=== PATIENT | female | born 1935 | race Caucasian/White ===

== ENCOUNTER 2018-03-23 07:29 | Inpatient (IN) | payer MEDICARE ==
[2018-03-23] MEDS: SOD CHLORIDE 0.9% 1,000 ML IV ×3 (08:30→13:43)
[2018-03-23 08:49] LABS: ADD MAN DIFF? NO
[2018-03-23] MEDS: ONDANSETRON 4 MG INJ IV (08:50)
[2018-03-23 08:52] LABS: BASOPHILS % 0.2 % (0.0-2.0); EOSINOPHILS % 0.2 % (0.0-7.0); HEMATOCRIT 46.6 % (37.0-47.0); LYMPHOCYTES % 10.3 % (15.0-51.0); MEAN CORPUSCULAR HEMOGLOBIN 31.4 pg (29.0-33.0); MEAN CORPUSCULAR HGB CONC 34.3 g/dl (32.0-37.0); MEAN CORPUSCULAR VOLUME 91.4 fl (82.0-101.0); MEAN PLATELET VOLUME 11.1 fl (7.4-10.4); MONOCYTE # 0.8 10^3/ul (0.3-0.9); MONOCYTES % 8.8 % (0.0-11.0); NEUTROPHIL # 7.6 10^3/ul (1.6-7.5); NEUTROPHILS % 80.2 % (39.0-77.0); PLATELET COUNT 346 10^3/UL (140-415); RED CELL DISTRIBUTION WIDTH 13.8 % (11.5-14.5)
[2018-03-23 08:52] LABS: WHITE BLOOD COUNT 9.5 10^3/ul (4.8-10.8)
[2018-03-23 08:55] LABS: ADD UMIC YES; UR ASCORBIC ACID 40 mg/dL (NEGATIVE); UR BACTERIA FEW /HPF (NONE SEEN); UR BILIRUBIN (Dip) NEGATIVE (NEGATIVE); UR BLOOD (Dip) NEGATIVE (NEGATIVE); UR CLARITY SLIGHTLY CLOUDY (CLEAR); UR COLOR YELLOW (YELLOW); UR GLUCOSE (Dip) 1+ mg/dL (NEGATIVE); UR KETONES (Dip) NEGATIVE (NEGATIVE); UR LEUKOCYTE ESTERASE (Dip) TRACE Leu/ul (NEGATIVE); UR MUCUS MODERATE /HPF (NONE SEEN); UR NITRITE (Dip) NEGATIVE (NEGATIVE); UR RBC 2 /HPF (0-5); UR SPECIFIC GRAVITY (Dip) 1.023 (1.003-1.030); UR SQUAMOUS EPITHELIAL CELL FEW /HPF (FEW); UR TOTAL PROTEIN (Dip) 2+ mg/dl (NEGATIVE); UR UROBILINOGEN (Dip) NEGATIVE (NEGATIVE); UR WBC 3 /HPF (0-5)
[2018-03-23 08:57] LABS: POSITIVE DIFF @See below
[2018-03-23 09:12] LABS: ALBUMIN 5.1 g/dl (3.3-4.9); ALBUMIN/GLOBULIN RATIO 1.24; ALKALINE PHOSPHATASE 41 IU/L (42-121); ANION GAP 15 (8-16); ASPARTATE AMINO TRANSFERASE 79 IU/L (15-46); BILIRUBIN,INDIRECT 0.5 mg/dl (0-1.1); BILIRUBIN,TOTAL 0.5 mg/dl (0.2-1.3); BLOOD UREA NITROGEN 26 mg/dl (7-20); CALCIUM 9.8 mg/dl (8.4-10.2); CARBON DIOXIDE 28 mmol/L (21-31); CHLORIDE 98 mmol/L (97-110); CREATININE 0.71 mg/dl (0.44-1.00); GLUCOSE 100 mg/dl (70-220); LIPASE 157 U/L (23-300); POTASSIUM 5.7 mmol/L (3.5-5.1); SODIUM 135 mmol/L (135-144); TOTAL PROTEIN 9.2 g/dl (6.1-8.1)
[2018-03-23 09:13] LABS: ALANINE AMINOTRANSFERASE < 6 IU/L (13-69)
[2018-03-23 09:24] LABS: TROPONIN-I 0.023 ng/ml (0.000-0.120)
[2018-03-23] MEDS ORDERED: CEFTRIAXONE 1 GM INJ IM (09:30)
[2018-03-23] MEDS: ALBUTEROL 0.083% (NEB) 2.5 MG/3 ML AMP HHN (09:56)
[2018-03-23] MEDS ORDERED: ALBUTEROL 0.083% (NEB) 2.5 MG/3 ML AMP (10:01)
[2018-03-23] MEDS ORDERED: DOCUSATE SODIUM 100 MG CAP PO (11:00)
[2018-03-23] MEDS ORDERED: NACL 0.9% 3 ML SYG IV (11:00)
[2018-03-23] MEDS ORDERED: ONDANSETRON 4 MG INJ IV (11:00)
[2018-03-23] MEDS: CEFTRIAXONE 1 GM/50 ML (PMX) 50 ML IVPB (11:53)
[2018-03-23] MEDS: NA PHOSPHATE/BIPHOS 133 ML ENEMA PR (12:30)
[2018-03-23] MEDS: CIPROFLOXACIN 400MG/D5W 200 ML IVPB ×2 (13:33→22:32)
[2018-03-23 14:02] LABS: ANION GAP 17 (8-16); BLOOD UREA NITROGEN 23 mg/dl (7-20); CALCIUM 8.7 mg/dl (8.4-10.2); CARBON DIOXIDE 21 mmol/L (21-31); CHLORIDE 106 mmol/L (97-110); GLUCOSE 114 mg/dl (70-220); POTASSIUM 3.5 mmol/L (3.5-5.1); SODIUM 140 mmol/L (135-144)
[2018-03-23] MEDS: METOCLOPRAMIDE 10 MG INJ IV (18:51)
[2018-03-23] MEDS: FAMOTIDINE 20 MG TAB PO (21:00)
[2018-03-23] MEDS: FLUTICASONE/VILANTEROL 100-25 INH (22:40)
[2018-03-23] MEDS: [UNRECOGNIZED DRUG - OTHER] BOTH EYES (23:30)
[2018-03-23] MEDS: LORAZEPAM 2 MG INJ IV (23:35)
[2018-03-24] MEDS: SOD CHLORIDE 0.9% 1,000 ML IV ×4 (01:24→17:30)
[2018-03-24] MEDS: METOCLOPRAMIDE 10 MG INJ IV ×3 (01:24→12:00)
[2018-03-24 06:15] LABS: ADD MAN DIFF? NO
[2018-03-24 06:35] LABS: WHITE BLOOD COUNT 7.9 10^3/ul (4.8-10.8)
[2018-03-24 06:35] LABS: BASOPHILS % 0.5 % (0.0-2.0); EOSINOPHILS % 0.5 % (0.0-7.0); HEMOGLOBIN 12.7 g/dl (12.0-16.0); LYMPHOCYTES # 1.5 10^3/ul (0.8-2.9); LYMPHOCYTES % 18.4 % (15.0-51.0); MEAN CORPUSCULAR HEMOGLOBIN 31.9 pg (29.0-33.0); MEAN CORPUSCULAR HGB CONC 34.3 g/dl (32.0-37.0); MEAN PLATELET VOLUME 9.8 fl (7.4-10.4); NEUTROPHIL # 5.3 10^3/ul (1.6-7.5); NEUTROPHILS % 67.2 % (39.0-77.0); RED BLOOD COUNT 3.98 10^6/ul (4.20-5.40); RED CELL DISTRIBUTION WIDTH 14.3 % (11.5-14.5)
[2018-03-24 06:36] LABS: PLATELET COUNT 224 10^3/UL (140-415); POSITIVE DIFF @See below
[2018-03-24 06:43] LABS: ANION GAP 10 (8-16); BLOOD UREA NITROGEN 13 mg/dl (7-20); CALCIUM 8.3 mg/dl (8.4-10.2); CARBON DIOXIDE 24 mmol/L (21-31); CHLORIDE 109 mmol/L (97-110); CHOL/HDL RATIO 3.3 RATIO; CHOLESTEROL 205 mg/dl (100-200); CREATININE 0.59 mg/dl (0.44-1.00); GLUCOSE 93 mg/dl (70-220); HDL CHOLESTEROL 62 mg/dl (33-92); LDL CHOLESTEROL,CALCULATED 134 mg/dl; PHOSPHORUS 2.9 mg/dl (2.5-4.9); SODIUM 139 mmol/L (135-144); TRIGLYCERIDES 46 mg/dl (0-149)
[2018-03-24 06:55] LABS: HEMOGLOBIN A1C 5.5 % (0-5.9)
[2018-03-24] MEDS: CIPROFLOXACIN 400MG/D5W 200 ML IVPB ×2 (08:05→20:35)
[2018-03-24] MEDS: AMLODIPINE 2.5 MG TAB PO ×2 (08:06→16:00)
[2018-03-24] MEDS: FLUTICASONE/VILANTEROL 100-25 INH (08:07)
[2018-03-24] MEDS: LORAZEPAM 2 MG INJ IV (10:18)
[2018-03-24 10:44] LABS: PREALBUMIN 19.6 mg/dl (17.6-36.0)
[2018-03-24] MEDS ORDERED: METOCLOPRAMIDE 5 MG TAB PO (14:00)
[2018-03-24] MEDS: NA PHOSPHATE/BIPHOS 133 ML ENEMA PR (16:43)
[2018-03-24] MEDS: FAMOTIDINE 20 MG TAB PO (20:35)
[2018-03-24] MEDS: [UNRECOGNIZED DRUG - OTHER] BOTH EYES ×2 (20:39→21:19)
[2018-03-24] MEDS ORDERED: PROPYLENE GLYCOL/PEG 15 ML OPH BOTH EYES (21:00)
[2018-03-25] MEDS: SOD CHLORIDE 0.9% 1,000 ML IV ×2 (02:44→14:25)
[2018-03-25] MEDS: POLYETHYLENE GLYCOL 17 GM PACKET PO ×2 (09:00→11:10)
[2018-03-25 09:04] LABS: ADD MAN DIFF? NO
[2018-03-25 09:08] LABS: BASOPHIL # 0.1 10^3/ul (0.0-0.1); BASOPHILS % 0.8 % (0.0-2.0); EOSINOPHILS # 0.1 10^3/ul (0.0-0.5); EOSINOPHILS % 0.6 % (0.0-7.0); HEMATOCRIT 41.3 % (37.0-47.0); HEMOGLOBIN 13.8 g/dl (12.0-16.0); LYMPHOCYTES # 1.2 10^3/ul (0.8-2.9); LYMPHOCYTES % 15.2 % (15.0-51.0); MEAN CORPUSCULAR HEMOGLOBIN 30.3 pg (29.0-33.0); MEAN CORPUSCULAR HGB CONC 33.4 g/dl (32.0-37.0); MEAN CORPUSCULAR VOLUME 90.8 fl (82.0-101.0); MEAN PLATELET VOLUME 9.6 fl (7.4-10.4); MONOCYTES % 12.8 % (0.0-11.0); NEUTROPHIL # 5.5 10^3/ul (1.6-7.5); NEUTROPHILS % 70.2 % (39.0-77.0); PLATELET COUNT 270 10^3/UL (140-415); RED BLOOD COUNT 4.55 10^6/ul (4.20-5.40); RED CELL DISTRIBUTION WIDTH 14.1 % (11.5-14.5)
[2018-03-25 09:08] LABS: WHITE BLOOD COUNT 7.9 10^3/ul (4.8-10.8)
[2018-03-25] MEDS: CIPROFLOXACIN 400MG/D5W 200 ML IVPB (09:24)
[2018-03-25] MEDS: FLUTICASONE/VILANTEROL 100-25 INH (09:24)
[2018-03-25] MEDS: AMLODIPINE 5 MG TAB PO ×2 (09:26→11:12)
[2018-03-25 09:32] LABS: ANION GAP 8 (8-16); BLOOD UREA NITROGEN 8 mg/dl (7-20); CALCIUM 8.8 mg/dl (8.4-10.2); CARBON DIOXIDE 27 mmol/L (21-31); CHLORIDE 106 mmol/L (97-110); CREATININE 0.58 mg/dl (0.44-1.00); GLUCOSE 100 mg/dl (70-220); POTASSIUM 3.2 mmol/L (3.5-5.1); SODIUM 138 mmol/L (135-144)
[2018-03-25] MEDS: POTASSIUM CHLORIDE (SR) 20 MEQ TAB PO (11:11)
[2018-03-25] MEDS: DOCUSATE SODIUM 100 MG CAP PO ×2 (11:11→21:03)
[2018-03-25] MEDS: FLUCONAZOLE 150 MG TAB PO (12:13)
[2018-03-25] MEDS: NITROFURANTOIN (SR) 100 MG CAP PO ×2 (12:13→21:03)
[2018-03-25] MEDS: SENNA TAB PO ×2 (12:13→21:03)
[2018-03-25] MEDS: CLOTRIMAZOLE 1% 45 GM VAG CR VAG (14:24)
[2018-03-25] MEDS: CIPROFLOXACIN 500 MG TAB PO (17:40)
[2018-03-25] MEDS: FAMOTIDINE 20 MG TAB PO (21:03)
[2018-03-26] MEDS: SOD CHLORIDE 0.9% 1,000 ML IV ×3 (01:19→12:44)
[2018-03-26] MEDS: ZOLPIDEM 5 MG TAB PO ×2 (01:33→22:15)
[2018-03-26] MEDS: CIPROFLOXACIN 500 MG TAB PO ×2 (06:52→17:52)
[2018-03-26] MEDS: NITROFURANTOIN (SR) 100 MG CAP PO ×2 (09:20→20:51)
[2018-03-26] MEDS: AMLODIPINE 10 MG TAB PO (09:20)
[2018-03-26] MEDS: SENNA TAB PO ×2 (09:20→20:51)
[2018-03-26] MEDS: FLUTICASONE/VILANTEROL 100-25 INH (09:21)
[2018-03-26] MEDS: DOCUSATE SODIUM 100 MG CAP PO ×2 (09:21→20:51)
[2018-03-26] MEDS: MAGNESIUM CITRATE 300 ML BTL PO (14:22)
[2018-03-26] MEDS: POLYETHYLENE GLYCOL 17 GM PACKET PO (14:22)
[2018-03-26] MEDS: ACETAMINOPHEN 325 MG TAB PO (17:54)
[2018-03-26] MEDS: VITAMIN A & D 5 GM OINT PACKET TOP (17:55)
[2018-03-26] MEDS: FAMOTIDINE 20 MG TAB PO (20:51)
[2018-03-26] MEDS: [UNRECOGNIZED DRUG - OTHER] BOTH EYES (20:52)
[2018-03-27 05:47] LABS: ANION GAP 12 (8-16); BLOOD UREA NITROGEN 15 mg/dl (7-20); CALCIUM 9.5 mg/dl (8.4-10.2); CARBON DIOXIDE 28 mmol/L (21-31); CHLORIDE 100 mmol/L (97-110); CREATININE 0.64 mg/dl (0.44-1.00); GLUCOSE 114 mg/dl (70-220); POTASSIUM 3.5 mmol/L (3.5-5.1); SODIUM 136 mmol/L (135-144)
[2018-03-27] MEDS: CIPROFLOXACIN 500 MG TAB PO ×2 (06:30→17:48)
[2018-03-27] MEDS: DOCUSATE SODIUM 100 MG CAP PO ×2 (09:00→20:57)
[2018-03-27] MEDS: SENNA TAB PO ×2 (09:00→20:59)
[2018-03-27] MEDS: POLYETHYLENE GLYCOL 17 GM PACKET PO (09:00)
[2018-03-27] MEDS: FLUTICASONE/VILANTEROL 100-25 INH (09:10)
[2018-03-27] MEDS: AMLODIPINE 10 MG TAB PO (09:11)
[2018-03-27] MEDS: NITROFURANTOIN (SR) 100 MG CAP PO ×2 (09:11→20:59)
[2018-03-27] MEDS: LOSARTAN 25 MG TAB PO (12:32)
[2018-03-27] MEDS: [UNRECOGNIZED DRUG - OTHER] BOTH EYES (20:58)
[2018-03-27] MEDS: VITAMIN A & D 5 GM OINT PACKET TOP (20:58)
[2018-03-27] MEDS: FAMOTIDINE 20 MG TAB PO (20:58)
[2018-03-27] MEDS: ZOLPIDEM 5 MG TAB PO (21:02)
[2018-03-28] MEDS: CIPROFLOXACIN 500 MG TAB PO (05:44)
[2018-03-28 06:02] LABS: ANION GAP 10 (8-16); BLOOD UREA NITROGEN 19 mg/dl (7-20); CALCIUM 9.3 mg/dl (8.4-10.2); CARBON DIOXIDE 30 mmol/L (21-31); CHLORIDE 100 mmol/L (97-110); CREATININE 0.83 mg/dl (0.44-1.00); GLUCOSE 100 mg/dl (70-220); POTASSIUM 3.6 mmol/L (3.5-5.1); SODIUM 136 mmol/L (135-144)
[2018-03-28] MEDS: NITROFURANTOIN (SR) 100 MG CAP PO (08:28)
[2018-03-28] MEDS: AMLODIPINE 10 MG TAB PO (08:28)
[2018-03-28] MEDS: FLUTICASONE/VILANTEROL 100-25 INH (08:29)
[2018-03-28] MEDS: POLYETHYLENE GLYCOL 17 GM PACKET PO (08:29)
[2018-03-28] MEDS: DOCUSATE SODIUM 100 MG CAP PO (08:29)
[2018-03-28] MEDS: SENNA TAB PO (08:29)
[2018-03-28] MEDS: LOSARTAN 25 MG TAB PO (09:44)
== END 2018-03-28 16:35 | disposition home or self-care (01) | DRG 392 ==
LOC: E/R 07:29 → 2NE 09:58
DX: K59.00 Constipation, unspecified (principal); N39.0 Urinary tract infection, site not specified; Z68.1 Body mass index [BMI] 19.9 or less, adult; R64 Cachexia; E46 Unspecified protein-calorie malnutrition; B37.3 Candidiasis of vulva and vagina; B96.4 Proteus (mirabilis) (morganii) as the cause of diseases classified elsewhere; B96.20 Unspecified Escherichia coli [E. coli] as the cause of diseases classified elsewhere; E86.0 Dehydration; E87.5 Hyperkalemia; G20 Parkinson's disease; G25.0 Essential tremor; G62.9 Polyneuropathy, unspecified; I10 Essential (primary) hypertension; J45.909 Unspecified asthma, uncomplicated; K76.0 Fatty (change of) liver, not elsewhere classified; N28.1 Cyst of kidney, acquired; R10.9 Unspecified abdominal pain; R11.0 Nausea; R27.0 Ataxia, unspecified
CPT/HCPCS: 36415; 71045; 74176; 74182; 80048; 80053; 80061; 81001; 83036; 83690; 83735; 84100; 84134; 84443; 84484; 85025; 87040; 87086; 93005; 94664; 97110; 97116; 97161; 99285-25

== ENCOUNTER 2018-05-04 12:05 | Emergency (ER) | payer MEDICARE ==
[2018-05-04 12:56] LABS: ADD MAN DIFF? NO
[2018-05-04 12:57] LABS: BASOPHILS % 0.3 % (0.0-2.0); EOSINOPHILS % 0.1 % (0.0-7.0); HEMOGLOBIN 14.4 g/dl (12.0-16.0); LYMPHOCYTES # 1.3 10^3/ul (0.8-2.9); LYMPHOCYTES % 13.7 % (15.0-51.0); MEAN CORPUSCULAR HEMOGLOBIN 31.5 pg (29.0-33.0); MEAN CORPUSCULAR HGB CONC 34.3 g/dl (32.0-37.0); MEAN CORPUSCULAR VOLUME 91.9 fl (82.0-101.0); MEAN PLATELET VOLUME 10.1 fl (7.4-10.4); MONOCYTE # 0.8 10^3/ul (0.3-0.9); MONOCYTES % 8.1 % (0.0-11.0); NEUTROPHIL # 7.4 10^3/ul (1.6-7.5); NEUTROPHILS % 77.4 % (39.0-77.0); PLATELET COUNT 263 10^3/UL (140-415); RED BLOOD COUNT 4.57 10^6/ul (4.20-5.40); RED CELL DISTRIBUTION WIDTH 13.8 % (11.5-14.5)
[2018-05-04 12:57] LABS: WHITE BLOOD COUNT 9.6 10^3/ul (4.8-10.8)
[2018-05-04] MEDS: ONDANSETRON 4 MG INJ IV (13:01)
[2018-05-04] MEDS: SOD CHLORIDE 0.9% 1,000 ML IV (13:02)
[2018-05-04 13:15] LABS: ADD UMIC NO; UR ASCORBIC ACID 20 mg/dL (NEGATIVE); UR BILIRUBIN (Dip) NEGATIVE (NEGATIVE); UR BLOOD (Dip) NEGATIVE (NEGATIVE); UR CLARITY CLEAR (CLEAR); UR COLOR YELLOW (YELLOW); UR GLUCOSE (Dip) NEGATIVE (NEGATIVE); UR KETONES (Dip) TRACE mg/dL (NEGATIVE); UR LEUKOCYTE ESTERASE (Dip) NEGATIVE Leu/ul (NEGATIVE); UR NITRITE (Dip) NEGATIVE (NEGATIVE); UR SPECIFIC GRAVITY (Dip) 1.011 (1.003-1.030); UR TOTAL PROTEIN (Dip) NEGATIVE (NEGATIVE); UR UROBILINOGEN (Dip) NEGATIVE (NEGATIVE)
[2018-05-04 13:18] LABS: ALANINE AMINOTRANSFERASE 13 IU/L (13-69); ALBUMIN 4.5 g/dl (3.3-4.9); ALBUMIN/GLOBULIN RATIO 1.36; ALKALINE PHOSPHATASE 47 IU/L (42-121); ANION GAP 10 (8-16); ASPARTATE AMINO TRANSFERASE 37 IU/L (15-46); BILIRUBIN,INDIRECT 0.5 mg/dl (0-1.1); BILIRUBIN,TOTAL 0.5 mg/dl (0.2-1.3); BLOOD UREA NITROGEN 29 mg/dl (7-20); CARBON DIOXIDE 29 mmol/L (21-31); CHLORIDE 104 mmol/L (97-110); CREATININE 0.75 mg/dl (0.44-1.00); GLUCOSE 111 mg/dl (70-220); LIPASE 131 U/L (23-300); POTASSIUM 5.1 mmol/L (3.5-5.1); SODIUM 138 mmol/L (135-144); TOTAL PROTEIN 7.8 g/dl (6.1-8.1)
[2018-05-04 13:29] LABS: TROPONIN-I < 0.012 ng/ml (0.000-0.120)
== END 2018-05-04 14:30 | disposition home or self-care (01) ==
LOC: E/R 12:05
DX: R11.0 Nausea (principal); R40.2142 Coma scale, eyes open, spontaneous, at arrival to emergency department; R40.2362 Coma scale, best motor response, obeys commands, at arrival to emergency department; R40.2252 Coma scale, best verbal response, oriented, at arrival to emergency department; E86.0 Dehydration; I10 Essential (primary) hypertension; J45.909 Unspecified asthma, uncomplicated; Z87.891 Personal history of nicotine dependence; Z85.9 Personal history of malignant neoplasm, unspecified
CPT/HCPCS: 36415; 71045; 80053; 81003; 83690; 84484; 85025; 93005; 96374; 99285-25

== ENCOUNTER 2018-06-16 09:19 | Emergency (ER) | payer MEDICARE ==
[2018-06-16 10:02] LABS: ADD MAN DIFF? NO
[2018-06-16 10:04] LABS: WHITE BLOOD COUNT 11.1 10^3/ul (4.8-10.8)
[2018-06-16 10:04] LABS: ABNORMAL IP MESSAGE 1; BASOPHILS % 0.2 % (0.0-2.0); EOSINOPHILS % 0.2 % (0.0-7.0); HEMATOCRIT 42.9 % (37.0-47.0); HEMOGLOBIN 14.3 g/dl (12.0-16.0); LYMPHOCYTES # 0.6 10^3/ul (0.8-2.9); LYMPHOCYTES % 5.2 % (15.0-51.0); MEAN CORPUSCULAR HEMOGLOBIN 31.2 pg (29.0-33.0); MEAN CORPUSCULAR HGB CONC 33.3 g/dl (32.0-37.0); MEAN CORPUSCULAR VOLUME 93.7 fl (82.0-101.0); MEAN PLATELET VOLUME 9.3 fl (7.4-10.4); MONOCYTE # 0.7 10^3/ul (0.3-0.9); MONOCYTES % 6.3 % (0.0-11.0); NEUTROPHIL # 9.7 10^3/ul (1.6-7.5); NEUTROPHILS % 87.6 % (39.0-77.0); PLATELET COUNT 348 10^3/UL (140-415); RED BLOOD COUNT 4.58 10^6/ul (4.20-5.40); RED CELL DISTRIBUTION WIDTH 14.3 % (11.5-14.5)
[2018-06-16 10:10] LABS: POSITIVE DIFF @See below
[2018-06-16] MEDS: SOD CHLORIDE 0.9% 1,000 ML IV (10:26)
[2018-06-16] MEDS: ONDANSETRON 4 MG INJ IV (10:26)
[2018-06-16] MEDS: LORAZEPAM 2 MG INJ IV (10:27)
[2018-06-16 10:35] LABS: ALANINE AMINOTRANSFERASE 27 IU/L (13-69); ALBUMIN 4.3 g/dl (3.3-4.9); ALBUMIN/GLOBULIN RATIO 1.34; ALKALINE PHOSPHATASE 60 IU/L (42-121); ANION GAP 8 (5-13); ASPARTATE AMINO TRANSFERASE 27 IU/L (15-46); BILIRUBIN,INDIRECT 0.3 mg/dl (0-1.1); BILIRUBIN,TOTAL 0.3 mg/dl (0.2-1.3); BLOOD UREA NITROGEN 32 mg/dl (7-20); CALCIUM 10.2 mg/dl (8.4-10.2); CARBON DIOXIDE 33 mmol/L (21-31); CHLORIDE 99 mmol/L (97-110); CREATININE 0.85 mg/dl (0.44-1.00); GLUCOSE 119 mg/dl (70-220); LIPASE 189 U/L (23-300); POTASSIUM 4.2 mmol/L (3.5-5.1); SODIUM 140 mmol/L (135-144); TOTAL PROTEIN 7.5 g/dl (6.1-8.1)
[2018-06-16 10:38] LABS: ADD UMIC YES; UR ASCORBIC ACID 40 mg/dL (NEGATIVE); UR BILIRUBIN (Dip) NEGATIVE (NEGATIVE); UR BLOOD (Dip) NEGATIVE (NEGATIVE); UR CLARITY SLIGHTLY CLOUDY (CLEAR); UR COLOR YELLOW (YELLOW); UR GLUCOSE (Dip) NEGATIVE (NEGATIVE); UR KETONES (Dip) 1+ mg/dL (NEGATIVE); UR LEUKOCYTE ESTERASE (Dip) NEGATIVE Leu/ul (NEGATIVE); UR MUCUS FEW /HPF (NONE SEEN); UR NITRITE (Dip) NEGATIVE (NEGATIVE); UR RBC 0 /HPF (0-5); UR SPECIFIC GRAVITY (Dip) 1.023 (1.003-1.030); UR TOTAL PROTEIN (Dip) 1+ mg/dl (NEGATIVE); UR UROBILINOGEN (Dip) 1+ mg/dL (NEGATIVE); UR WBC 1 /HPF (0-5)
== END 2018-06-16 12:42 | disposition home or self-care (01) ==
LOC: E/R 09:19
DX: R11.0 Nausea (principal); R40.2252 Coma scale, best verbal response, oriented, at arrival to emergency department; R40.2142 Coma scale, eyes open, spontaneous, at arrival to emergency department; R40.2362 Coma scale, best motor response, obeys commands, at arrival to emergency department; J45.909 Unspecified asthma, uncomplicated; I10 Essential (primary) hypertension; Z87.891 Personal history of nicotine dependence
CPT/HCPCS: 36415; 80053; 81001; 83690; 85025; 96374; 96375; 99284-25

== ENCOUNTER 2019-03-30 17:17 | Emergency (ER) | payer MEDICARE, OTHER ==
[2019-03-30] MEDS: ONDANSETRON 4 MG INJ IV (18:13)
[2019-03-30] MEDS: SOD CHLORIDE 0.9% 1,000 ML IV (18:14)
[2019-03-30 18:29] LABS: ADD MAN DIFF? NO
[2019-03-30 18:31] LABS: BASOPHILS % 0.4 % (0.0-2.0); EOSINOPHILS % 0.3 % (0.0-7.0); HEMATOCRIT 38.6 % (37.0-47.0); HEMOGLOBIN 13.2 g/dl (12.0-16.0); LYMPHOCYTES # 1.2 10^3/ul (0.8-2.9); LYMPHOCYTES % 16.6 % (15.0-51.0); MEAN CORPUSCULAR HEMOGLOBIN 30.9 pg (29.0-33.0); MEAN CORPUSCULAR HGB CONC 34.2 g/dl (32.0-37.0); MEAN CORPUSCULAR VOLUME 90.4 fl (82.0-101.0); MEAN PLATELET VOLUME 9.4 fl (7.4-10.4); MONOCYTE # 0.8 10^3/ul (0.3-0.9); MONOCYTES % 10.6 % (0.0-11.0); NEUTROPHIL # 5.2 10^3/ul (1.6-7.5); PLATELET COUNT 324 10^3/UL (140-415); RED BLOOD COUNT 4.27 10^6/ul (4.20-5.40); RED CELL DISTRIBUTION WIDTH 13.7 % (11.5-14.5)
[2019-03-30 18:31] LABS: WHITE BLOOD COUNT 7.2 10^3/ul (4.8-10.8)
[2019-03-30 18:54] LABS: ALANINE AMINOTRANSFERASE 23 IU/L (13-69); ALBUMIN 4.3 g/dl (3.3-4.9); ALBUMIN/GLOBULIN RATIO 1.53; ALKALINE PHOSPHATASE 37 IU/L (42-121); ANION GAP 7 (5-13); ASPARTATE AMINO TRANSFERASE 23 IU/L (15-46); BILIRUBIN,INDIRECT 0.4 mg/dl (0-1.1); BILIRUBIN,TOTAL 0.4 mg/dl (0.2-1.3); BLOOD UREA NITROGEN 24 mg/dl (7-20); CALCIUM 10.5 mg/dl (8.4-10.2); CARBON DIOXIDE 27 mmol/L (21-31); CHLORIDE 99 mmol/L (97-110); CREATININE 0.96 mg/dl (0.44-1.00); GLUCOSE 120 mg/dl (70-220); POTASSIUM 3.9 mmol/L (3.5-5.1); SODIUM 133 mmol/L (135-144); TOTAL PROTEIN 7.1 g/dl (6.1-8.1)
[2019-03-30 19:12] LABS: ADD UMIC NO; UR ASCORBIC ACID 20 mg/dL (NEGATIVE); UR BILIRUBIN (Dip) NEGATIVE (NEGATIVE); UR BLOOD (Dip) NEGATIVE (NEGATIVE); UR CLARITY CLEAR (CLEAR); UR COLOR STRAW (YELLOW); UR GLUCOSE (Dip) NEGATIVE (NEGATIVE); UR KETONES (Dip) 1+ mg/dL (NEGATIVE); UR LEUKOCYTE ESTERASE (Dip) NEGATIVE Leu/ul (NEGATIVE); UR NITRITE (Dip) NEGATIVE (NEGATIVE); UR SPECIFIC GRAVITY (Dip) 1.008 (1.003-1.030); UR TOTAL PROTEIN (Dip) NEGATIVE (NEGATIVE); UR UROBILINOGEN (Dip) NEGATIVE (NEGATIVE)
[2019-03-30 19:37] LABS: LIPASE 189 U/L (23-300)
== END 2019-03-30 21:08 | disposition home or self-care (01) ==
LOC: E/R 17:17
DX: R11.0 Nausea (principal); I10 Essential (primary) hypertension; J45.909 Unspecified asthma, uncomplicated
CPT/HCPCS: 36415; 80053; 81003; 83690; 85025; 93005; 96374; 99284-25

== ENCOUNTER 2019-04-04 20:10 | Emergency (ER) | payer MEDICARE, OTHER ==
[2019-04-04 21:53] LABS: ADD MAN DIFF? NO
[2019-04-04 21:54] LABS: WHITE BLOOD COUNT 9.1 10^3/ul (4.8-10.8)
[2019-04-04 21:54] LABS: BASOPHILS % 0.4 % (0.0-2.0); EOSINOPHILS % 0.2 % (0.0-7.0); HEMATOCRIT 38.6 % (37.0-47.0); HEMOGLOBIN 13.1 g/dl (12.0-16.0); LYMPHOCYTES # 1.3 10^3/ul (0.8-2.9); LYMPHOCYTES % 14.4 % (15.0-51.0); MEAN CORPUSCULAR HEMOGLOBIN 31.4 pg (29.0-33.0); MEAN CORPUSCULAR HGB CONC 33.9 g/dl (32.0-37.0); MEAN CORPUSCULAR VOLUME 92.6 fl (82.0-101.0); MEAN PLATELET VOLUME 9.3 fl (7.4-10.4); MONOCYTE # 0.7 10^3/ul (0.3-0.9); MONOCYTES % 7.3 % (0.0-11.0); NEUTROPHILS % 77.3 % (39.0-77.0); PLATELET COUNT 285 10^3/UL (140-415); RED BLOOD COUNT 4.17 10^6/ul (4.20-5.40); RED CELL DISTRIBUTION WIDTH 13.9 % (11.5-14.5)
[2019-04-04] MEDS: ONDANSETRON 4 MG INJ IV (21:58)
[2019-04-04] MEDS: SOD CHLORIDE 0.9% 500 ML IV (21:58)
[2019-04-04 22:02] LABS: ADD UMIC NO; UR ASCORBIC ACID NEGATIVE (NEGATIVE); UR BILIRUBIN (Dip) NEGATIVE (NEGATIVE); UR BLOOD (Dip) NEGATIVE (NEGATIVE); UR CLARITY CLEAR (CLEAR); UR COLOR STRAW (YELLOW); UR GLUCOSE (Dip) NEGATIVE (NEGATIVE); UR KETONES (Dip) TRACE mg/dL (NEGATIVE); UR LEUKOCYTE ESTERASE (Dip) NEGATIVE Leu/ul (NEGATIVE); UR NITRITE (Dip) NEGATIVE (NEGATIVE); UR SPECIFIC GRAVITY (Dip) 1.005 (1.003-1.030); UR TOTAL PROTEIN (Dip) NEGATIVE (NEGATIVE); UR UROBILINOGEN (Dip) NEGATIVE (NEGATIVE)
[2019-04-04 23:53] LABS: ALANINE AMINOTRANSFERASE 23 IU/L (13-69); ALBUMIN 3.9 g/dl (3.3-4.9); ALBUMIN/GLOBULIN RATIO 1.34; ALKALINE PHOSPHATASE 35 IU/L (42-121); ANION GAP 9 (5-13); ASPARTATE AMINO TRANSFERASE 22 IU/L (15-46); BILIRUBIN,INDIRECT 0.6 mg/dl (0-1.1); BILIRUBIN,TOTAL 0.6 mg/dl (0.2-1.3); BLOOD UREA NITROGEN 19 mg/dl (7-20); CALCIUM 9.8 mg/dl (8.4-10.2); CARBON DIOXIDE 23 mmol/L (21-31); CHLORIDE 103 mmol/L (97-110); CREATININE 0.83 mg/dl (0.44-1.00); GLUCOSE 106 mg/dl (70-220); LIPASE 200 U/L (23-300); POTASSIUM 4.2 mmol/L (3.5-5.1); SODIUM 135 mmol/L (135-144); TOTAL PROTEIN 6.8 g/dl (6.1-8.1)
== END 2019-04-05 00:19 | disposition home or self-care (01) ==
LOC: E/R 04-05 00:19
DX: K59.00 Constipation, unspecified (principal); I10 Essential (primary) hypertension; J45.909 Unspecified asthma, uncomplicated; Z85.3 Personal history of malignant neoplasm of breast
CPT/HCPCS: 36415; 74019; 80053; 81003; 83690; 85025; 96374; 99284-25